=== PATIENT | male | born 1985 | race African-American/Black ===

== ENCOUNTER 2018-05-14 16:38 | Emergency (ER) | payer OTHER ==
[2018-05-14] MEDS: ACETAMINOPHEN 325 MG TAB PO (17:15)
[2018-05-14] MEDS: AUGMENTIN 875 MG TAB PO (18:45)
== END 2018-05-14 18:51 | disposition home or self-care (01) ==
LOC: M ED 16:38
DX: S02.2XXA Fracture of nasal bones, initial encounter for closed fracture (principal); S02.40DA Maxillary fracture, left side, initial encounter for closed fracture; J34.89 Other specified disorders of nose and nasal sinuses; S00.83XA Contusion of other part of head, initial encounter; Y04.8XXA Assault by other bodily force, initial encounter; Y92.148 Other place in prison as the place of occurrence of the external cause; J45.909 Unspecified asthma, uncomplicated; Z91.013 Allergy to seafood
CPT/HCPCS: 73080